=== PATIENT | male | born 1975 | race Caucasian/White ===

== ENCOUNTER 2017-02-03 07:04 | Emergency (ER) | payer BC ==
[2017-02-03 07:27] VITALS: BP 154/74
--- NOTE | 2017-02-03 07:29 | UC ---
Neck Pain HPI - HPI Summary HPI Summary: neck pain x 1 week , radiating to his right arm / elbow + tingling and numbness of the right thumb and index finger, no known injury , has been taking ibuprofen, stretching , message therapy with no improvement, - History of Current Complaint Chief Complaint: UCUpperExtremity Stated Complaint: NECK/RT ELBOW COMPLAINT Time Seen by Provider: 02/03/17 07:13 Hx Obtained From: Patient Timing: Constant Onset/Duration: Gradual Onset, Lasting Weeks - 1, Still Present Severity: Moderate Location: Discrete At: - neck / right elbow Character: Aching, Spasmotic Aggravating Factors: Position, Movement Alleviating Factors: Nothing Associated Signs & Symptoms: Negative: Swelling, Redness, Bruising, Fever, Nuchal Rigity, Weakness, Headache, Paresthesia - Allergies/Home Medications Allergies/Adverse Reactions: Allergies Allergy/AdvReac Type Severity Reaction Status Date / Time Latex Allergy Itching Verified 02/03/17 07:13 Home Medications: Home Medications [id number] [Triumeq 600-50-300 mg] 1 tab PO DAILY 02/03/17 [ History Confirmed 02/03/17] Benazepril (NF) [Lotensin (NF)] 20 mg PO DAILY 02/03/17 [History Confirmed 02/03] Ibuprofen TAB* [Advil TAB*] 400 mg PO Q6H PRN 02/03/17 [History Confirmed ] PMH/Surg Hx/FS Hx/Imm Hx Cardiovascular History Of: Reports: Hypertension - Surgical History Surgical History: Yes Surgery Procedure, Year, and Place: Left Radius Repair, Right Bunionectomy - Family History Known Family History: Negative: Diabetes - Social History Alcohol Use: Rare Substance Use Type: None Smoking Status (MU): Never Smoked Tobacco Review Of Systems Constitutional: Positive: Negative Skin: Positive: Negative Eyes: Positive: Negative ENT: Positive: Negative Respiratory: Positive: Negative Cardiovascular: Positive: Negative All Other Systems Reviewed And Are Negative: Yes Physical Exam Triage Information Reviewed: Yes Appearance: Well-Appearing, No Pain Distress, Well-Nourished Vital Signs: Initial Vital Signs Temp 98.7 F 02/03/17 07:09 Pulse 70 02/03/17 07:09 Resp 16 02/03/17 07:09 BP 154/74 02/03/17 07:09 Pulse Ox 100 02/03/17 07:09 Vital Signs Reviewed: Yes Eye Exam: Normal Eyes: Positive: Conjunctiva Clear ENT: Positive: Normal ENT inspection, Hearing grossly normal, Pharynx normal Neck: Positive: Tenderness @ - right side, Other: - decrease ROM on rotation to left Respiratory: Positive: Lungs clear, Normal breath sounds, No respiratory distress Cardiovascular: Positive: RRR, No Murmur, Pulses Normal Abdominal Exam: Normal Musculoskeletal Exam: Normal Musculoskeletal: Positive: Strength Intact, ROM Intact, No Edema, Other: - right elbow: no swelling, no tenderness, good ROM on flexion and extension , mormal strength Neurological Exam: Normal Neurological: Positive: Alert Skin Exam: Normal Neck Pain Course/Dx - Differential Dx/Diagnosis Provider Diagnoses: neck strain. thoracic outlet syndrome Discharge - Discharge Plan Condition: Stable Disposition: HOME Prescriptions: Cyclobenzaprine TAB* [Flexeril 10 MG TAB*] 10 mg PO BID #20 tab Naproxen [Naproxen 500 MG TABS] 500 mg PO BID #20 tab Patient Education Materials: Thoracic Outlet Syndrome (ED), Acute Neck Pain (ED ) Additional Instructions: follow up with your pcp in 10 days if not better
== END 2017-02-03 07:31 | disposition home or self-care (01) ==
LOC: UCCORT 07:04
DX: S16.1XXA Strain of muscle, fascia and tendon at neck level, initial encounter (principal); X58.XXXA Exposure to other specified factors, initial encounter; Y93.9 Activity, unspecified; Y92.9 Unspecified place or not applicable; G54.0 Brachial plexus disorders; I10 Essential (primary) hypertension; Z91.040 Latex allergy status
CPT/HCPCS: 99212; G0463